=== PATIENT | female | born 1975 | race Caucasian/White ===

== ENCOUNTER 2023-12-18 20:01 | Emergency (ER) | payer OTHER ==
[~2023-12-18] VITALS: Ht 165.1 cm; Wt 122.5 kg
[2023-12-18] MEDS ORDERED: SYNTHROID300 MCG PO (20:14)
[2023-12-18] MEDS ORDERED: PROZAC10 MG PO (20:14)
[2023-12-18] MEDS ORDERED: PREMARIN0.3 M1 PO (20:15)
[2023-12-18] MEDS ORDERED: PRILOSEC20 M1 PO (20:15)
[2023-12-18] MEDS ORDERED: IBUPROFEN 800 MG TAB PO ONE (20:40)
[2023-12-18] MEDS ORDERED: Enoxaparin Sodium 100 MG/ML SYR SC ONE (20:50)
== END 2023-12-18 21:17 | disposition home or self-care (01) ==
LOC: ED 20:01
DX: M79.661 Pain in right lower leg (principal); R22.41 Localized swelling, mass and lump, right lower limb; Z88.2 Allergy status to sulfonamides; Z88.8 Allergy status to other drugs, medicaments and biological substances; Z79.899 Other long term (current) drug therapy; W18.40XA Slipping, tripping and stumbling without falling, unspecified, initial encounter; Y93.89 Activity, other specified; Y92.89 Other specified places as the place of occurrence of the external cause; Y99.8 Other external cause status